=== PATIENT | female | born 1940 | race Caucasian/White ===

== ENCOUNTER 2017-06-15 15:59 | Outpatient (CLI) | payer MEDICARE ==
--- NOTE | 2017-06-16 15:15 | Mammography Report ---
DIGITAL SCREENING MAMMOGRAM: 06/15/2017 CLINICAL INDICATION: A 76-year-old nulliparous patient for screening. COMPARISON: 04/2016, 04/2015, 04/2014, 03/2013, 02/2012, 01/2011, 12/2009 TECHNIQUE: Routine CC and MLO projections were obtained of the breasts. FINDINGS: Parenchymal tissue within the breasts is predominantly fatty replaced. There are no domina nt masses, suspicious microcalcifications, or secondary signs of malignancy. In comparison to the pre vious studies, there are no significant changes. IMPRESSION: NO MAMMOGRAPHIC EVIDENCE OF MALIGNANCY. NO SIGNIFICANT INTERVAL CHANGES. RECOMMENDATION: Screening mammography is recommended annually. BIRADS category 1 - negative. STANDARD QUALIFYING STATEMENTS 1. This examination was reviewed with the aid of Computed-Aided Detection (CAD). 2. A negative or benign imaging report should not delay biopsy if clinically suspicious findings are present. Consider surgical consultation if warranted. More than 5% of cancers are not identified by i maging. 3. Dense breasts may obscure an underlying neoplasm. JOB #: [id number] EXT JOB #:[id number]
== END 2017-06-15 16:00 | disposition home or self-care (01) ==
LOC: DI 15:59
PROVIDERS: ATTEND Internal Medicine
DX: Z12.31 Encounter for screening mammogram for malignant neoplasm of breast (principal)
CPT/HCPCS: 77067

== ENCOUNTER 2017-08-18 07:00 | Day surgery (SDC) | payer MEDICARE ==
[~2017-08-18 07:00] MED LIST: CYCLOPENTOLATE 1% OPHTH DROPS 2 ML ONE; KETOROLAC 0.45% OPHTH DROPS ONE; PHENYLEPHRINE 2.5% OPHTH 2 ML DROPS ONE; PROPARACAINE 0.5% OPHTH DROPS 15 ML ONE
[2017-08-18] MEDS ORDERED: PHENYLEPHRINE 2.5% OPHTH 2 ML DROPS LEFTEYE ONE (07:15)
[2017-08-18] MEDS ORDERED: PROPARACAINE 0.5% OPHTH DROPS 15 ML LEFTEYE ONE ×2 (07:15→08:30)
[2017-08-18] MEDS ORDERED: CYCLOPENTOLATE 1% OPHTH DROPS 2 ML LEFTEYE ONE (07:15)
[2017-08-18] MEDS ORDERED: KETOROLAC 0.45% OPHTH DROPS LEFTEYE ONE (07:15)
[2017-08-18] MEDS ORDERED: BRIMONIDINE 0.2% OPHTH DROPS 5 ML ONE (07:16)
[2017-08-18] MEDS ORDERED: TIMOLOL 0.5% OPHTH DROPS ONE (07:16)
[2017-08-18] MEDS ORDERED: LACTATED RINGERS 500 ML IV ONE (07:20)
[2017-08-18] MEDS ORDERED: EPINEPHrine 1 MG/ML VIAL ONE ×2 (07:21→07:31)
[2017-08-18] MEDS ORDERED: MIDAZOLAM 2 MG/2 ML VIAL IVP ONE (08:10)
[2017-08-18] MEDS ORDERED: CHONDR SULF/HYALURONATE SYRINGE IO ONE (08:30)
[2017-08-18] MEDS ORDERED: TIMOLOL 0.5% OPHTH DROPS OPTH ONE (08:30)
[2017-08-18] MEDS ORDERED: BSS/LIDOCAINE/EPINEPHRINE 1 ML SYRINGE IO ONE (08:30)
[2017-08-18] MEDS ORDERED: EPINEPHrine 1 MG/ML AMP IVP ONE (08:30)
[2017-08-18] MEDS ORDERED: TRIAMCIN/MOXIFLOX/VANCO 1 ML VIAL IO ONE (08:30)
[2017-08-18] MEDS ORDERED: BRIMONIDINE 0.2% OPHTH DROPS 5 ML OPTH ONE (08:30)
[2017-08-18 08:39] VITALS: BP 142/66
--- NOTE | 2017-08-18 11:03 | OPERATIVE REPORT ---
DATE OF SERVICE: 08/18/2017 Physician: Ayan Maldonado MD DATE OF SURGERY: 08/18/2017 PREOPERATIVE DIAGNOSIS: Visually significant cataract, left eye. This was her first cataract surgery. POSTOPERATIVE DIAGNOSIS: Visually significant cataract, left eye. This was her first cataract surgery. NAME OF PROCEDURE: Phacoemulsification with posterior chamber intraocular lens implant, left eye. SURGEON: Ayan Maldonado MD ANESTHESIA: Monitored anesthesia care. COMPLICATIONS: None. OPERATIVE INDICATIONS: This is a 76-year-old woman with progressive vision loss in the left eye due to 1+ nuclear sclerotic and 3+ cortical cataract. Best corrected visual acuity was 20/30 with glare to 20/50 in the left eye. Indications for surgery were overall decrease in vision and difficulty with glare to bright lights. She was consented at length concerning risks and benefits of cataract surgery, after which she expressed her desire to proceed with surgery. OPERATIVE PROCEDURE: The patient was taken into OR #3, and placed under monitored anesthesia care. A surgical time-out was conducted confirming correct patient, correct procedure, and correct surgical site. She was given topical anesthesia, and prepped and draped in the usual sterile fashion. The eye was entered at the 6 and 3 o'clock positions. Intracameral Shugarcaine was injected into the anterior chamber, followed by Viscoat. A continuous-tear curvilinear capsulorrhexis was performed. The nucleus was hydrodissected and phacoemulsified. Cortex was evacuated using automated infusion and aspiration (I&A). Provisc was injected in the capsular bag and a 21.0 diopter intraocular lens was inserted in the bag. Approximately 0.7 mL of a mixture of triamcinolone, moxifloxacin, vancomycin was injected subconjunctivally in the superior quadrant for infection and inflammation prophylaxis. I&A was used to evacuate the viscoelastic materials. The eye was inflated to physiologic pressure using a balanced salt solution and found to be watertight. The patient was taken from the operating room in good condition and given postoperative instructions. Dictating Provider: MD MICHELLE Smith/ TD: 08/18/2017 10:33 [facility]ENTERCollin
== END 2017-08-18 07:01 | disposition home or self-care (01) ==
LOC: SDS 07:00
PROVIDERS: ATTEND Ophthalmology
PROC: 08RK3JZ Replacement of Left Lens with Synthetic Substitute, Percutaneous Approach (ICD-10-PCS; principal; 2017-08-18 08:00)
DX: H25.812 Combined forms of age-related cataract, left eye (principal); I10 Essential (primary) hypertension; F32.9 Major depressive disorder, single episode, unspecified
CPT/HCPCS: 66984; A9270; J0171; J3490; V2632

== ENCOUNTER 2017-09-18 15:24 | Emergency (ER) | payer MEDICARE ==
[2017-09-18 15:51] VITALS: BP 152/100
--- NOTE | 2017-09-18 16:20 | ED Physician Documentation ---
PD HPI UPPER EXT INJURY - Stated complaint Stated Complaint: L WRIST INJ - Chief complaint Chief Complaint: Ext Problem - History obtained from History obtained from: Patient - History of Present Illness Location: Left, Wrist Type of injury: Fall (slipped walking dog and caught fall with left wrist, causing pain/injury to the wrist. Denies other injury.) Timing - onset: Today Timing - details: Abrupt onset, Still present Improved by: Rest Worsened by: Moving, Palpating Associated symptoms: Swelling (left wrist dorsally). No: Weakness, Numbness Contributing factors: No: Anticoagulated Similar symptoms before: Has not had sx before Recently seen: Not recently seen Review of Systems Cardiac: denies: Chest pain / pressure GI: denies: Abdominal Pain Skin: denies: Abrasion (s), Laceration (s) Neurologic: denies: Focal weakness, Numbness, Headache, Head injury PD PAST MEDICAL HISTORY - Past Medical History Past Medical History: No Cardiovascular: None, Hypertension Respiratory: None Endocrine/Autoimmune: None GI: None : Other HEENT: Chronic vision loss, Chronic hearing loss Psych: Depression, Anxiety Musculoskeletal: Osteoarthritis Derm: None - Past Surgical History Past Surgical History: Yes 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, Breast reduction HEENT: Cataracts, Tonsil/Adenoidectomy - Present Medications Home Medications: Ambulatory Orders Medication Instructions Recorded Confirmed Venlafaxine HCl [Effexor Xr] 150 mg PO DAILY 08/29/14 09/18/17 - Allergies Allergies/Adverse Reactions: Allergies Allergy/AdvReac Type Severity Reaction Status Date / Time Penicillins Allergy Unknown Verified 09/18/17 15:51 - Social History Does the pt smoke?: No Smoking Status: Never smoker Does the pt drink ETOH?: No Does the pt have substance abuse?: No - Immunizations Immunizations are current?: Yes - POLST Patient has POLST: No PD ED PE NORMAL - Vitals Vital signs reviewed: Yes - General General: Alert and oriented X 3, No acute distress, Well developed/nourished - HEENT HEENT: Atraumatic - Neck Neck: Supple, no meningeal sign, No bony TTP - Cardiac Cardiac: RRR, No murmur - Respiratory Respiratory: Clear bilaterally, Other (no chestwall tenderness) - Abdomen Abdomen: Soft, Non tender - Back Back: No spinal TTP - Derm Derm: Normal color, Warm and dry - Extremities Extremities: Other (left wrist with swelling dorsally and pain on slight ROM. Tender distal radius. No obvious angulation. ) - Neuro Neuro: Alert and oriented X 3, No motor deficit, No sensory deficit, Normal speech Results - Vitals Vitals: Oxygen O2 Source Room air - Rads (name of study) left wrist Radiology: Prelim report reviewed, EMP read contemporaneously (distal radius fracture without displacement nor angulation. comminuted with some articular involvement but articular surface appears in line. ) Procedures - Splint (location) left wrist Splint applied by: Tech Type of splint: Fiberglass, Sugar tong Other: Patient tolerated well, No complications, Neurovascular intact, Sling provided PD MEDICAL DECISION MAKING - ED course Complexity details: reviewed results, considered differential, d/w patient ( discussed fracture and need for follow up. She was told her BP was elevated and she says it is sometimes but does not take meds for it. ) Departure - Departure Disposition: 01 Home, Self Care Clinical Impression: Fall from slip, trip, or stumble Qualifiers: Encounter type: initial encounter Qualified Code(s): W01.0XXA - Fall on same level from slipping, tripping and stumbling without subsequent striking against object, initial encounter Wrist fracture Qualifiers: Encounter type: initial encounter Fracture type: closed Laterality: left Qualified Code(s): S62.102A - Fracture of unspecified carpal bone, left wrist, initial encounter for closed fracture Condition: Stable Record reviewed to determine appropriate education?: Yes Instructions: ED Fx Colles Wrist No Redu Requ, ED Splint Care Fiberglass Follow-Up: Maddie Fay MD [Primary Care Provider] - Carla Burroughs MD [Provider Admit Priv/Credential] - Comments: Keep the splint on and the wrist elevated. Ice periodically and elevated to reduce swelling. Call orthopedic office tomorrow for an appointment later in the week for change to a cast. Tylenol or ibuprofen if needed for pains. Discharge Date/Time: 09/18/17 17:05
--- NOTE | 2017-09-18 16:21 | XRAY Report ---
EXAM: LEFT WRIST RADIOGRAPHY EXAM DATE: 09/18/2017 04:09 PM. CLINICAL HISTORY: Fall. Left wrist injury. COMPARISON: Bilateral forearm radiographs 08/29/2014. TECHNIQUE: 4 views. FINDINGS: Bones: Comminuted, minimally impacted intra-articular distal radius fracture, superimposed on healed fracture deformity of the radial styloid. Joints: Normal alignment. Moderate joint space loss, subchondral degenerative changes, and osteophyto sis at the first CMC joint, mild joint space loss and osteophytosis at the first interphalangeal join t, and mild joint space loss and subchondral degenerative changes at the triscaphe joint, compatible with osteoarthritis. Soft Tissues: Swelling overlying the wrist. IMPRESSION: 1. Acute comminuted, minimally impacted intra-articular distal radius fracture. 2. Osteoarthritis at the first CMC, first IP, and triscaphe joints. [facility] Referring Provider Line: [phone] SITE ID: [id number]
--- NOTE | 2017-09-18 16:21 | XRAY Preliminary Report ---
Exam: XR WRIST 4 VIEW LT IMPRESSION: 1. Acute comminuted, minimally impacted intra-articular distal radius fracture. 2. Osteoarthritis at the first CMC, first IP, and triscaphe joints. [facility] SITE ID: [id number]
== END 2017-09-18 17:05 | disposition home or self-care (01) ==
LOC: ED 15:24
DX: S62.102A Fracture of unspecified carpal bone, left wrist, initial encounter for closed fracture (principal); W18.30XA Fall on same level, unspecified, initial encounter; Y93.K1 Activity, walking an animal; I10 Essential (primary) hypertension
CPT/HCPCS: 29125; 99283

== ENCOUNTER 2017-12-19 10:32 | Outpatient (CLI) | payer MEDICARE ==
--- NOTE | 2017-12-19 15:11 | DEXA Report ---
DEXA SCAN: 12/19/2017 CLINICAL INDICATION: Osteopenia. TECHNIQUE: Dual energy x-ray absorptiometry (DXA) was performed on a Simple Beat system. Regions measured are the AP spine, femoral neck, and, if needed, forearm. COMPARISON: None. In accordance with the International Society for Clinical Densitometry (ISCD) guidelines, data from previous exams may be reanalyzed using current recommendations and techniques. This is done to allow a more accurate basis for comparison with the current study. FINDINGS Data for the lumbar spine is as follows: REGION BMD (g/cm/cm) T-SCORE Z-SCORE L1 0.907 -1.9 -0.3 L2 1.165 -0.3 1.2 L3 1.227 0.2 1.8 L4 1.283 0.7 2.2 L1-L4 1.163 -0.1 1.4 NOTE: All evaluable vertebrae are used for classification. Data for the hip is as follows: REGION BMD (g/cm/cm) T-SCORE Z-SCORE Neck 0.712 -2.3 -0.6 TOTAL 0.783 -1.8 -0.2 NOTE: The femoral neck or total proximal femur, whichever is lowest, is used for classification. IMPRESSION WHO CLASSIFICATION BASED ON THE INTERNATIONAL REFERENCE STANDARD IS OSTEOPENIA. FRACTURE RISK IS INCREASED. RECOMMENDATION: Patients with diagnosis of osteoporosis or osteopenia should have regular bone mineral density assessment. For those eligible for Medicare, routine testing is allowed once every 2 years. Testing frequency can be increased for patients who have rapidly progressing disease or for those who are receiving medical therapy to restore bone mass. COMMENT World Health Organization (WHO) definitions for osteoporosis and osteopenia: NORMAL BMD: T-score at 1.0 or higher, fracture risk is low. OSTEOPENIA BMD: T-score between 1.0 and -2.5, fracture risk is increased. OSTEOPOROSIS BMD: T-score at 2.5 or lower, fracture risk high. National Osteoporosis Foundation recommends: 1. Obtain adequate dietary calcium (at least 1200 mg per day) and vitamin D (400 -800 international units per day). 2. Participate, as appropriate, in regular weightbearing and muscle- strengthening exercise. 3. Avoid tobacco use and reduce alcohol and caffeine intake. 4. For more detailed information see the website at www.NOF.org. TD: 12/19/2017 13:32 MTDD
== END 2017-12-19 10:33 | disposition home or self-care (01) ==
LOC: DI 10:32
PROVIDERS: ATTEND Internal Medicine
DX: M85.88 Other specified disorders of bone density and structure, other site (principal)
CPT/HCPCS: 77080

== ENCOUNTER 2018-04-03 07:48 | Day surgery (SDC) | payer MEDICARE ==
[2018-04-03] MEDS ORDERED: LACTATED RINGERS 1,000 ML IV ONE (07:56)
[2018-04-03] MEDS ORDERED: fentaNYL 250 MCG/5 ML VIAL IVP ONE (09:11)
[2018-04-03] MEDS ORDERED: MIDAZOLAM 2 MG/2 ML VIAL IVP ONE (09:11)
[2018-04-03 10:56] VITALS: BP 129/76
== END 2018-04-03 07:49 | disposition home or self-care (01) ==
LOC: SDS 07:48
PROVIDERS: ATTEND Surgery
PROC: 0DBP8ZZ Excision of Rectum, Via Natural or Artificial Opening Endoscopic (ICD-10-PCS; principal; 2018-04-03 09:00)
DX: Z12.11 Encounter for screening for malignant neoplasm of colon (principal); K62.1 Rectal polyp; K64.8 Other hemorrhoids; I10 Essential (primary) hypertension
CPT/HCPCS: 45380; J3010; J7120; 88305

== ENCOUNTER 2018-06-21 07:14 | Outpatient (CLI) | payer MEDICARE ==
[2018-06-21 11:16] LABS: BILIRUBIN,URINE NEGATIVE (NEGATIVE); GLUCOSE, URINE (UA) NEGATIVE (NEGATIVE); KETONES,URINE (UA) NEGATIVE (NEGATIVE); LEUKOCYTE ESTERASE, URINE NEGATIVE (NEGATIVE); NITRITE,URINE NEGATIVE (NEGATIVE); OCCULT BLOOD,URINE NEGATIVE (NEGATIVE); PH,URINE 6.5 PH (5.0-7.5); PROTEIN,URINE NEGATIVE (NEGATIVE); UROBILINOGEN,URINE 0.2 (NORMAL) E.U./dL (NORMAL)
[2018-06-21 11:17] LABS: CLARITY,URINE CLEAR (CLEAR)
[2018-06-21 11:41] LABS: ALBUMIN 4.1 g/dL (3.2-5.5); ALBUMIN/GLOBULIN RATIO 1.4 (1.0-2.2); ALKALINE PHOSPHATASE 144 IU/L (42-121); ALT ALANINE AMINOTRANSFERASE 15 IU/L (10-60); AST ASPARTATE AMINOTRANSFERASE 20 IU/L (10-42); BILIRUBIN,TOTAL 0.8 mg/dL (0.2-1.0); BUN - BLOOD UREA NITROGEN 13 mg/dL (6-20); CALCIUM 9.1 mg/dL (8.5-10.3); CARBON DIOXIDE - CO2 28 mmol/L (21-32); CHLORIDE 107 mmol/L (101-111); CHOL/HDL RATIO 2.9 (<4.4); CHOLESTEROL 167 mg/dL; CREATININE 0.8 mg/dL (0.4-1.0); GFR - MDRD 70 (>89); GLUCOSE 88 mg/dL (70-100); HDL CHOLESTEROL 58 mg/dL; LDL CHOLESTEROL,CALCULATED 90 mg/dL; LDL/HDL RATIO 1.6 (<4.4); SODIUM 141 mmol/L (135-145); TOTAL PROTEIN 7.1 g/dL (6.7-8.2); VLDL CHOLESTEROL 19 mg/dL
[2018-06-22 13:01] LABS: HEPATITIS C ANTIBODY NON-REACTIVE (NON-REACTIVE)
[2018-06-22 13:31] LABS: HEPATITIS B SURFACE ANTIGEN NON-REACTIVE (NON-REACTIVE)
== END 2018-06-21 07:15 | disposition home or self-care (01) ==
LOC: LAB.F 07:14
PROVIDERS: ATTEND Internal Medicine
DX: I10 Essential (primary) hypertension (principal); Z79.899 Other long term (current) drug therapy; H26.9 Unspecified cataract; M85.80 Other specified disorders of bone density and structure, unspecified site; D56.9 Thalassemia, unspecified; L71.9 Rosacea, unspecified; Z86.19 Personal history of other infectious and parasitic diseases; Z13.6 Encounter for screening for cardiovascular disorders
CPT/HCPCS: 36415; 80053; 80061; 81001; 81003; 83721; 84443; 86317; 86704; 86803; 87086; 87340

== ENCOUNTER 2018-06-23 11:02 | Outpatient (CLI) | payer MEDICARE ==
[2018-06-23 18:21] LABS: BASOPHILS % (AUTO) 0.7 %; EOSINOPHILS # (AUTO) 0.1 10^3/uL (0.0-0.7); EOSINOPHILS % (AUTO) 1.1 %; HGB - HEMOGLOBIN 12.6 g/dL (12.0-16.0); LYMPHOCYTES # (AUTO) 1.7 10^3/uL (1.5-3.5); LYMPHOCYTES % (AUTO) 25.4 %; MEAN CORPUSCULAR HEMOGLOBIN 19.8 pg (27.0-31.0); MEAN CORPUSCULAR HGB CONC 31.2 g/dL (32.0-36.0); MEAN CORPUSCULAR VOLUME 63.5 fL (81.0-99.0); MEAN PLATELET VOLUME 8.9 fL (7.9-10.8); MONOCYTES # (AUTO) 0.6 10^3/uL (0.0-1.0); MONOCYTES % (AUTO) 9.7 %; NEUTROPHILS # (AUTO) 4.2 10^3/uL (1.5-6.6); NEUTROPHILS % (AUTO) 63.1 %; PLT - PLATELET COUNT 261 10^3/uL (130-450); RED BLOOD COUNT 6.33 10^6/uL (4.20-5.40); RED CELL DISTRIBUTION WIDTH 17.1 % (12.0-15.0); WHITE BLOOD COUNT 6.6 x10^3/uL (4.8-10.8)
[2018-06-23 19:19] LABS: PLATELET ESTIMATE, MANUAL NORMAL (130-450,000) (NORMAL); PLATELET MORPHOLOGY NORMAL APPEARANCE (NORMAL)
== END 2018-06-23 11:03 | disposition home or self-care (01) ==
LOC: LAB.F 11:02
PROVIDERS: ATTEND Internal Medicine
DX: I10 Essential (primary) hypertension (principal); Z79.899 Other long term (current) drug therapy; H26.9 Unspecified cataract; M85.80 Other specified disorders of bone density and structure, unspecified site; D56.9 Thalassemia, unspecified; L71.9 Rosacea, unspecified; Z13.6 Encounter for screening for cardiovascular disorders
CPT/HCPCS: 36415; 85025

== ENCOUNTER 2018-07-31 15:01 | Outpatient (CLI) | payer MEDICARE ==
--- NOTE | 2018-08-01 08:46 | Mammography Report ---
Reason: SCREENING MAMMO Procedure Date: 07/31/2018 Accession Number: [id number] / [id number] Procedure: JEN - Screening Mammo w/Aniceto CPT Code: FULL RESULT: EXAM: Screening Mammo w/Aniceto DATE: 07/31/2018 3:26 PM CLINICAL HISTORY: Screening encounter. History of nulliparity and early menses. Surgical history of breast reduction. Family history of breast cancer in an aunt at the age of 60 and multiple cousins at the age of 45 and 77. TECHNIQUE: Bilateral CC and MLO views were obtained. COMPARISON: 06/15/2017 through 05/27/2014. FINDINGS: The breasts demonstrate diffuse fatty replacement bilaterally. Coarse typically benign right breast calcifications are identified. No suspicious masses, clustered microcalcifications, or regions of architectural distortion are identified. IMPRESSION: Benign findings RECOMMENDATION: Routine annual screening unless otherwise clinically indicated. BIRADS CATEGORY 2: Benign findings STANDARD QUALIFYING STATEMENTS: 1. This examination was not reviewed with the aid of Computer-Aided Detection (CAD). 2. A negative or benign imaging report should not preclude biopsy if clinically suspicious findings are present. 3. Dense breasts may obscure an underlying neoplasm. 4. This examination was reviewed with the aid of 3D breast imaging (tomosynthesis).
== END 2018-07-31 15:02 | disposition home or self-care (01) ==
LOC: DI 15:01
PROVIDERS: ATTEND Internal Medicine
DX: Z12.31 Encounter for screening mammogram for malignant neoplasm of breast (principal); Z80.3 Family history of malignant neoplasm of breast
CPT/HCPCS: 77063; 77067

== ENCOUNTER 2018-09-20 11:25 | Outpatient (CLI) | payer MEDICARE ==
--- NOTE | 2018-09-20 14:04 | XRAY Report ---
Reason: BONY PROTRUSION R UPPER SHOUDLER Procedure Date: 09/20/2018 Accession Number: [id number] / [id number] Procedure: XR - Shoulder 3 View RT CPT Code: FULL RESULT: EXAM: RIGHT SHOULDER RADIOGRAPHY EXAM DATE: 09/20/2018 12:12 PM. CLINICAL HISTORY: Bony protrusion right upper shoulder. COMPARISON: None. TECHNIQUE: 3 views. FINDINGS: Bones: Normal. No fracture or bone lesion. Joints: The glenohumeral and acromioclavicular joints are normal with the exception of degenerative changes at the AC joint, mild. Soft tissues: The visualized hemithorax is unremarkable. No soft tissue swelling. IMPRESSION: No fracture or dislocation. Mild degenerative changes of the acromioclavicular joint are likely the etiology of a bony palpable abnormality on top of the shoulder, correlate to physical exam. [facility]
== END 2018-09-20 11:26 | disposition home or self-care (01) ==
LOC: LAB 11:25 → DI 11:26
PROVIDERS: ATTEND Internal Medicine
DX: M19.011 Primary osteoarthritis, right shoulder (principal); M89.311 Hypertrophy of bone, right shoulder; M25.519 Pain in unspecified shoulder
CPT/HCPCS: 36415; 85651; 86140

== ENCOUNTER 2019-04-05 05:48 | Day surgery (SDC) | payer MEDICARE ==
[2019-04-05] MEDS ORDERED: CYCLOPENTOLATE 1% OPHTH DROPS 2 ML ONE (06:27)
[2019-04-05] MEDS ORDERED: PHENYLEPHRINE 2.5% OPHTH 2 ML DROPS ONE ×2 (06:27→06:28)
[2019-04-05] MEDS ORDERED: KETOROLAC 0.45% OPHTH DROPS ONE (06:27)
[2019-04-05] MEDS ORDERED: PROPARACAINE 0.5% OPHTH DROPS 15 ML ONE ×2 (06:28→06:29)
[2019-04-05] MEDS ORDERED: PHENYLEPHRINE 2.5% OPHTH 2 ML DROPS RIGHTEYE ONE (06:35)
[2019-04-05] MEDS ORDERED: KETOROLAC 0.45% OPHTH DROPS RIGHTEYE ONE (06:35)
[2019-04-05] MEDS ORDERED: CYCLOPENTOLATE 1% OPHTH DROPS 2 ML RIGHTEYE ONE (06:35)
[2019-04-05] MEDS ORDERED: PROPARACAINE 0.5% OPHTH DROPS 15 ML RIGHTEYE ONE ×2 (06:35→07:36)
[2019-04-05] MEDS ORDERED: LACTATED RINGERS 1,000 ML IV ONE (06:39)
--- NOTE | 2019-04-05 07:10 | ANESTHESIA ---
Pre-Anesthesia VS, & Labs - Diagnosis right eye senile combined cataract - Procedure right eye cataract extraction with probable intraocular lens implant Vital Signs: Temp Pulse Resp BP Pulse Ox 36.4 C L 85 18 154/75 H 96 04/05/19 06:29 04/05/19 06:29 04/05/19 06:29 04/05/19 06:29 04/05/19 06:29 Height 5 ft Weight (kg) 69.1 kg Body Mass Index 30.0 - NPO >8 hours - Is Patient ?: No Home Medications and Allergies Home Medications: Ambulatory Orders Aspirin 325 mg PO DAILY PRN 04/04/19 L.acid/L.casei/B.bif/B.ben/Fos [Probiotic Blend Capsule] 1 DAILY 04/05/19 Venlafaxine HCl [Effexor Xr] 150 mg PO DAILY 08/29/14 Amlodipine Besylate 10 mg PO DAILY 04/03/18 Aspirin 325 mg PO DAILY PRN 04/04/19 L.acid/L.casei/B.bif/B.ben/Fos [Probiotic Blend Capsule] 1 DAILY 04/05/19 Allergies/Adverse Reactions: Allergies Allergy/AdvReac Type Severity Reaction Status Date / Time Sulfa (Sulfonamide Allergy Severe Unknown Verified 04/04/19 13:38 Antibiotics) Penicillins Allergy Unknown Verified 04/04/19 13:38 Anes History & Medical History - Medical History Cardiovascular: reports: Hypertension Pulmonary: reports: None Gastrointestinal: reports: None Urinary: reports: None Neuro: reports: None Musculoskeletal: reports: Osteoarthritis Endocrine/Autoimmune: reports: None Blood Disorders: reports: None Skin: reports: None Smoking Status: Never smoker Psychosocial: reports: Depression - Surgical History General: Colonoscopy Eyes Ears Nose Throat (EENT): Cataracts, Tonsil/Adenoidectomy Urologic: Bladder surgery Gynecologic: Hysterectomy, Breast reduction Exam General: Alert, Oriented x3, Cooperative, No acute distress Dental: WNL Mouth Openin Fingerbreadth Neck Mobility: Normal Mallampati classification: II Thyromental Distance: 4-6 cm Mental/Cognitive Status: Alert/Oriented X3, Normal for patient Plan Anesthesia Type: MAC Consent for Procedure(s) Verified and Reviewed: Yes Code Status: Attempt Resuscitation ASA classification: 2-Mild systemic disease Is this case an emergency?: No
[2019-04-05] MEDS ORDERED: TRIAMCIN/MOXIFLOX OPHTHALMIC 0.6 ML VIAL IO ONE ×2 (07:16→07:37)
[2019-04-05] MEDS ORDERED: EPINEPHrine 1 MG/ML AMP ONE (07:16)
[2019-04-05] MEDS ORDERED: BRIMONIDINE 0.2% OPHTH DROPS 5 ML ONE (07:16)
[2019-04-05] MEDS ORDERED: TIMOLOL 0.5% OPHTH DROPS ONE (07:16)
[2019-04-05] MEDS ORDERED: VANCOMYCIN OPHTHALMI 8MG/0.8ML 8 MG/0.8 ML SYRINGE IO ONE ×2 (07:17→07:37)
[2019-04-05] MEDS ORDERED: BSS/LIDOCAINE/EPINEPHRINE 1 ML SYRINGE ONE (07:17)
[2019-04-05] MEDS ORDERED: MIDAZOLAM 2 MG/2 ML VIAL IVP ONE (07:30)
[2019-04-05] MEDS ORDERED: BRIMONIDINE 0.2% OPHTH DROPS 5 ML OPTH ONE (07:35)
[2019-04-05] MEDS ORDERED: TIMOLOL 0.5% OPHTH DROPS OPTH ONE (07:36)
[2019-04-05] MEDS ORDERED: EPINEPHrine 1 MG/ML AMP IVP ONE (07:36)
[2019-04-05] MEDS ORDERED: BSS/LIDOCAINE/EPINEPHRINE 1 ML SYRINGE IO ONE (07:36)
[2019-04-05] MEDS ORDERED: CHONDR SULF/HYALURONATE SYRINGE IO ONE (07:36)
[2019-04-05 07:57] VITALS: BP 138/68
--- NOTE | 2019-04-05 08:23 | OPERATIVE REPORT ---
DATE OF SERVICE: 04/05/2019 Physician: Ayan Maldonado MD PREOPERATIVE DIAGNOSIS: Visually significant cataract, right eye. Cataract surgery was performed on the left eye on 08/18/2017. POSTOPERATIVE DIAGNOSIS: Visually significant cataract, right eye. Cataract surgery was performed o n the left eye on 08/18/2017. PROCEDURE: Phacoemulsification with posterior chamber intraocular lens implant, right eye. SURGEON: Ayan Maldonado MD ANESTHESIA: Monitored anesthesia care. COMPLICATIONS: None. OPERATIVE INDICATIONS: This is a 78-year-old woman with progressive vision loss in the right eye due to 2+ nuclear sclerotic and 2-3+ cortical cataract. Best corrected visual acuity was 20/40, with gl are to 20/60 in the right eye. Indications for surgery were overall decrease in vision and difficult y seeing words, closed caption or game scores on TV. She was consented at length concerning risks an d benefits of cataract surgery, after which she expressed a desire to proceed with surgery. OPERATIVE PROCEDURE: Patient was taken into OR #3 and placed under monitored anesthesia care. A venessa gical timeout was conducted confirming correct patient, correct procedure, and correct surgical site. She was given topical anesthesia, and prepped and draped in the usual sterile fashion. The eye was entered at the 12 and 9 o'clock positions. Intracameral Shugarcaine was injected into the anterior chamber, followed by Viscoat. A continuous-tear curvilinear capsulorrhexis was performed. The nucle us was hydrodissected and phacoemulsified. Cortex was evacuated using automated infusion and aspirat ion. Provisc was injected in the capsular bag, and a 22.0 diopter intraocular lens was inserted in t he bag. Approximately 0.8 mL of a mixture of triamcinolone, moxifloxacin and vancomycin was injected subconjunctivally in the superior quadrant for infection and inflammation prophylaxis. I and A was used to evacuate the viscoelastic materials. The eye was inflated to physiologic pressure using a ba lanced salt solution and found to be watertight. Patient was taken from the operating room in good c ondition and given postoperative instructions. TD: 04/05/2019 07:57
== END 2019-04-05 05:49 | disposition home or self-care (01) ==
LOC: SDS 05:48
PROVIDERS: ATTEND Ophthalmology
PROC: 08RJ3JZ Replacement of Right Lens with Synthetic Substitute, Percutaneous Approach (ICD-10-PCS; principal; 2019-04-05 07:30)
DX: H25.811 Combined forms of age-related cataract, right eye (principal); I10 Essential (primary) hypertension
CPT/HCPCS: 66984; A9270; J3490; J7120; V2632

== ENCOUNTER 2019-06-01 07:33 | Outpatient (CLI) | payer MEDICARE ==
[2019-06-01 07:54] LABS: BASOPHILS # (AUTO) 0.1 10^3/uL (0.0-0.1); BASOPHILS % (AUTO) 0.9 %; EOSINOPHILS # (AUTO) 0.2 10^3/uL (0.0-0.7); HGB - HEMOGLOBIN 10.6 g/dL (12.0-16.0); LYMPHOCYTES # (AUTO) 1.4 10^3/uL (1.5-3.5); LYMPHOCYTES % (AUTO) 23.3 %; MEAN CORPUSCULAR HEMOGLOBIN 18.2 pg (27.0-31.0); MEAN CORPUSCULAR VOLUME 62.5 fL (81.0-99.0); MONOCYTES # (AUTO) 0.6 10^3/uL (0.0-1.0); MONOCYTES % (AUTO) 10.2 %; NEUTROPHILS # (AUTO) 3.6 10^3/uL (1.5-6.6); NEUTROPHILS % (AUTO) 61.3 %; PLT - PLATELET COUNT 295 10^3/uL (130-450); RED BLOOD COUNT 5.84 10^6/uL (4.20-5.40); RED CELL DISTRIBUTION WIDTH 21.2 % (12.0-15.0); WHITE BLOOD COUNT 5.8 x10^3/uL (4.8-10.8)
[2019-06-01 08:12] LABS: ALBUMIN 3.9 g/dL (3.2-5.5); ALBUMIN/GLOBULIN RATIO 1.3 (1.0-2.2); ALKALINE PHOSPHATASE 146 IU/L (42-121); ALT ALANINE AMINOTRANSFERASE 15 IU/L (10-60); AST ASPARTATE AMINOTRANSFERASE 24 IU/L (10-42); BILIRUBIN,TOTAL 0.8 mg/dL (0.2-1.0); BUN - BLOOD UREA NITROGEN 9 mg/dL (6-20); CALCIUM 9.1 mg/dL (8.5-10.3); CARBON DIOXIDE - CO2 28 mmol/L (21-32); CHLORIDE 109 mmol/L (101-111); CHOL/HDL RATIO 2.7 (<4.4); CHOLESTEROL 170 mg/dL; CREATININE 0.8 mg/dL (0.4-1.0); GFR - MDRD 70 (>89); GLUCOSE 105 mg/dL (70-100); HDL CHOLESTEROL 62 mg/dL; LDL CHOLESTEROL,CALCULATED 98 mg/dL; LDL/HDL RATIO 1.6 (<4.4); SODIUM 144 mmol/L (135-145); TOTAL PROTEIN 6.8 g/dL (6.7-8.2); VLDL CHOLESTEROL 10 mg/dL
[2019-06-01 08:26] LABS: PLATELET ESTIMATE, MANUAL NORMAL (130-450,000) (NORMAL); PLATELET MORPHOLOGY NORMAL APPEARANCE (NORMAL)
[2019-06-01 08:38] LABS: HB2 TOTAL 11.4 g/dL; HEMOGLOBIN A1C 0.44 g/dL; HEMOGLOBIN A1C % 5.7 % (4.6-6.2)
== END 2019-06-01 07:34 | disposition home or self-care (01) ==
LOC: LAB 07:33
PROVIDERS: ATTEND Registered Nurse
DX: I10 Essential (primary) hypertension (principal); Z13.220 Encounter for screening for lipoid disorders; Z13.1 Encounter for screening for diabetes mellitus
CPT/HCPCS: 36415; 80053; 80061; 83036; 83721; 84443; 85025

== ENCOUNTER 2019-06-01 07:44 | Outpatient (CLI) | payer MEDICARE ==
--- NOTE | 2019-06-01 15:28 | Mammography Report ---
Reason: SCREENING MAMMO Procedure Date: 06/01/2019 Accession Number: [id number] / [id number] Procedure: JEN - Screening Mammo w/Aniceto CPT Code: FULL RESULT: EXAM: Screening Mammo w/Aniceto DATE: 06/01/2019 8:12 AM CLINICAL HISTORY: Screening TECHNIQUE: (B) - Bilateral CC and MLO views were obtained. COMPARISON: 07/31/2018, 06/15/2017, 05/25/2016 PARENCHYMAL PATTERN: (A) - The breasts demonstrate scattered fibroglandular densities bilaterally. FINDINGS: There are no suspicious masses, calcifications, or areas of distortion. IMPRESSION: Negative examination. BI-RADS category 1. RECOMMENDATION: (ANNUAL) - Recommend routine annual screening mammography. BI-RADS CATEGORY: (2) - Benign Findings. STANDARD QUALIFYING STATEMENTS: 1. This examination was not reviewed with the aid of Computer-Aided Detection (CAD). 2. A negative or benign imaging report should not preclude biopsy if clinically suspicious findings are present. 3. Dense breasts may obscure an underlying neoplasm. 4. This examination was reviewed with the aid of 3D breast imaging (tomosynthesis).
== END 2019-06-01 07:45 | disposition home or self-care (01) ==
LOC: DI 07:44
DX: Z12.31 Encounter for screening mammogram for malignant neoplasm of breast (principal)
CPT/HCPCS: 77063; 77067

== ENCOUNTER 2020-05-14 07:46 | Outpatient (CLI) | payer OTHER ==
[2020-05-14 08:09] LABS: BASOPHILS # (AUTO) 0.1 10^3/uL (0.0-0.1); BASOPHILS % (AUTO) 0.7 %; EOSINOPHILS # (AUTO) 0.2 10^3/uL (0.0-0.7); EOSINOPHILS % (AUTO) 2.5 %; HGB - HEMOGLOBIN 12.6 g/dL (12.0-16.0); LYMPHOCYTES # (AUTO) 1.6 10^3/uL (1.5-3.5); MEAN CORPUSCULAR HEMOGLOBIN 20.6 pg (27.0-31.0); MEAN CORPUSCULAR HGB CONC 30.4 g/dL (32.0-36.0); MEAN CORPUSCULAR VOLUME 67.9 fL (81.0-99.0); MEAN PLATELET VOLUME 10.7 fL (7.9-10.8); MONOCYTES # (AUTO) 0.7 10^3/uL (0.0-1.0); MONOCYTES % (AUTO) 9.2 %; NEUTROPHILS % (AUTO) 66.3 %; PLT - PLATELET COUNT 269 10^3/uL (130-450); RED BLOOD COUNT 6.11 10^6/uL (4.20-5.40); RED CELL DISTRIBUTION WIDTH 18.6 % (12.0-15.0); WHITE BLOOD COUNT 7.5 x10^3/uL (4.8-10.8)
[2020-05-14 08:24] LABS: ALBUMIN 4.2 g/dL (3.2-5.5); ALBUMIN/GLOBULIN RATIO 1.4 (1.0-2.2); ALKALINE PHOSPHATASE 129 IU/L (42-121); ALT ALANINE AMINOTRANSFERASE 18 IU/L (10-60); AST ASPARTATE AMINOTRANSFERASE 24 IU/L (10-42); BILIRUBIN,TOTAL 0.8 mg/dL (0.2-1.0); BUN - BLOOD UREA NITROGEN 14 mg/dL (6-20); CALCIUM 9.3 mg/dL (8.5-10.3); CARBON DIOXIDE - CO2 29 mmol/L (21-32); CHLORIDE 104 mmol/L (101-111); CHOL/HDL RATIO 3.2 (<4.4); CHOLESTEROL 177 mg/dL; CREATININE 0.9 mg/dL (0.4-1.0); GLUCOSE 122 mg/dL (70-100); HDL CHOLESTEROL 56 mg/dL; LDL CHOLESTEROL,CALCULATED 101 mg/dL; LDL/HDL RATIO 1.8 (<4.4); SODIUM 141 mmol/L (135-145); TOTAL PROTEIN 7.1 g/dL (6.7-8.2); VLDL CHOLESTEROL 20 mg/dL
[2020-05-14 08:32] LABS: PLATELET ESTIMATE, MANUAL NORMAL (130-450,000) (NORMAL); PLATELET MORPHOLOGY NORMAL APPEARANCE (NORMAL)
== END 2020-05-14 07:47 | disposition home or self-care (01) ==
LOC: LAB 07:46
PROVIDERS: ATTEND Registered Nurse
DX: I10 Essential (primary) hypertension (principal); K21.9 Gastro-esophageal reflux disease without esophagitis; F32.9 Major depressive disorder, single episode, unspecified
CPT/HCPCS: 36415; 80053; 80061; 83721; 84443; 85025

== ENCOUNTER 2020-05-22 13:12 | Outpatient (CLI) | payer OTHER ==
[2020-05-22 13:41] LABS: % IRON SATURATION 24 % (20-50); IRON 97 ug/dL (28-170); TOTAL IRON BINDING CAPACITY 409 ug/dL (250-450); TRANSFERRIN 292 mg/dL (192-382)
[2020-05-22 13:58] LABS: FERRITIN 19.5 ng/mL (11.0-306.8)
== END 2020-05-22 13:13 | disposition home or self-care (01) ==
LOC: LAB 13:12
PROVIDERS: ATTEND Registered Nurse
DX: R79.9 Abnormal finding of blood chemistry, unspecified (principal)
CPT/HCPCS: 36415; 82607; 82728; 83540; 84466

== ENCOUNTER 2020-07-01 15:10 | Outpatient (CLI) | payer OTHER ==
--- NOTE | 2020-07-02 16:31 | Mammography Report ---
BILATERAL DIGITAL SCREENING MAMMOGRAM 3D/2D: 07/01/2020 CLINICAL: Routine screening. Comparison is made to exams dated: 06/01/2019 mammogram, 07/31/2018 mammogram, and 06/15/2017 mammogra m - [facility]. The tissue of both breasts is predominantly fatty. No significant masses, calcifications, or other findings are seen in either breast. There has been no significant interval change. IMPRESSION: NEGATIVE There is no mammographic evidence of malignancy. A 1 year screening mammogram is recommended. This exam was interpreted at Station ID: [id number]. NOTE: For mammograms, a report in lay terms will be sent to the patient. Approximately 15% of breast malignancies will not be visualized mammographically. In the management of a palpable breast mass, a negative mammogram must not discourage biopsy of a clinically suspicious lesion. Electronically Signed By: Mirella white/naterad:07/01/2020 16:59:31 ACR BI-RADS Category 1: Negative 3341F PARENCHYMAL PATTERN: (F) - The breast(s) demonstrate(s) diffuse fatty replacement. BI-RADS CATEGORY: (1) - 1 RECOMMENDATION: (ANNUAL) - Recommend routine annual screening mammography. [id number] 1 year screening LATERALITY: (B)
== END 2020-07-01 15:11 | disposition home or self-care (01) ==
LOC: DI 15:10
PROVIDERS: ATTEND Registered Nurse
DX: Z12.31 Encounter for screening mammogram for malignant neoplasm of breast (principal)
CPT/HCPCS: 77063; 77067

== ENCOUNTER 2021-08-12 09:42 | Outpatient (CLI) | payer OTHER ==
[2021-08-12 10:02] LABS: BASOPHILS % (AUTO) 0.6 %; EOSINOPHILS # (AUTO) 0.2 10^3/uL (0.0-0.7); EOSINOPHILS % (AUTO) 3.1 %; HCT - HEMATOCRIT 44.6 % (37.0-47.0); HGB - HEMOGLOBIN 13.4 g/dL (12.0-16.0); LYMPHOCYTES # (AUTO) 1.5 10^3/uL (1.5-3.5); LYMPHOCYTES % (AUTO) 21.2 %; MEAN CORPUSCULAR HEMOGLOBIN 20.2 pg (27.0-31.0); MEAN CORPUSCULAR VOLUME 67.2 fL (81.0-99.0); MONOCYTES # (AUTO) 0.6 10^3/uL (0.0-1.0); MONOCYTES % (AUTO) 8.7 %; NEUTROPHILS # (AUTO) 4.6 10^3/uL (1.5-6.6); NEUTROPHILS % (AUTO) 66.3 %; PLT - PLATELET COUNT 264 10^3/uL (130-450); RED BLOOD COUNT 6.64 10^6/uL (4.20-5.40); RED CELL DISTRIBUTION WIDTH 18.6 % (12.0-15.0); WHITE BLOOD COUNT 6.9 x10^3/uL (4.8-10.8)
[2021-08-12 10:05] LABS: SLIDE REVIEW? Indicated
[2021-08-12 10:18] LABS: ALBUMIN 4.4 g/dL (3.2-5.5); ALBUMIN/GLOBULIN RATIO 1.5 (1.0-2.2); ALKALINE PHOSPHATASE 164 IU/L (42-121); ALT ALANINE AMINOTRANSFERASE 20 IU/L (10-60); AST ASPARTATE AMINOTRANSFERASE 28 IU/L (10-42); BILIRUBIN,TOTAL 0.7 mg/dL (0.2-1.0); BUN - BLOOD UREA NITROGEN 15 mg/dL (6-20); CALCIUM 9.8 mg/dL (8.5-10.3); CARBON DIOXIDE - CO2 30 mmol/L (21-32); CHLORIDE 102 mmol/L (101-111); CHOL/HDL RATIO 3.2 (<4.4); CHOLESTEROL 191 mg/dL; CREATININE 0.8 mg/dL (0.4-1.0); GFR - MDRD 69 (>89); GLUCOSE 112 mg/dL (70-100); HDL CHOLESTEROL 59 mg/dL; LDL CHOLESTEROL,CALCULATED 114 mg/dL; LDL/HDL RATIO 1.9 (<4.4); SODIUM 141 mmol/L (135-145); TOTAL PROTEIN 7.4 g/dL (6.7-8.2); TRIGLYCERIDES 88 mg/dL; VLDL CHOLESTEROL 18 mg/dL
[2021-08-12 10:29] LABS: THYROID STIMULATING HORMONE 1.73 uIU/mL (0.34-5.60)
[2021-08-12 11:01] LABS: PLATELET ESTIMATE, MANUAL NORMAL (130-450,000) (NORMAL); PLATELET MORPHOLOGY NORMAL APPEARANCE (NORMAL)
[2021-08-12 11:02] LABS: RBC MORPHOLOGY (MULTIPLE) 1+ MICROCYTOSIS (NORMAL); WBC MORPHOLOGY (MULTIPLE) NORMAL APPEARANCE (NORMAL)
--- NOTE | 2021-08-13 13:37 | Mammography Report ---
BILATERAL DIGITAL SCREENING MAMMOGRAM 3D/2D: 08/12/2021 CLINICAL: Routine screening. Comparison is made to exams dated: 07/01/2020 mammogram, 06/01/2019 mammogram, 07/31/2018 mammogram, mammogram, 05/25/2016 mammogram, and 05/20/2015 mammogram - [facility]. The tissue of both breasts is predominantly fatty. No significant masses, calcifications, or other findings are seen in either breast. There has been no significant interval change. IMPRESSION: NEGATIVE There is no mammographic evidence of malignancy. A 1 year screening mammogram is recommended. This exam was interpreted at Station ID: [id number]. NOTE: For mammograms, a report in lay terms will be sent to the patient. Approximately 15% of breast malignancies will not be visualized mammographically. In the management of a palpable breast mass, a negative mammogram must not discourage biopsy of a clinically suspicious lesion. Electronically Signed By: Nato Kirby M.D., jr/samara:08/12/2021 15:24:56 ACR BI-RADS Category 1: Negative 3341F PARENCHYMAL PATTERN: (F) - The breast(s) demonstrate(s) diffuse fatty replacement. BI-RADS CATEGORY: (1) - 1 RECOMMENDATION: (ANNUAL) - Recommend routine annual screening mammography. [id number] 1 year screening LATERALITY: (B)
== END 2021-08-12 09:43 | disposition home or self-care (01) ==
LOC: DI 09:42
PROVIDERS: ATTEND Registered Nurse
DX: Z12.31 Encounter for screening mammogram for malignant neoplasm of breast (principal); I10 Essential (primary) hypertension; F32.A Depression, unspecified; Z79.899 Other long term (current) drug therapy
CPT/HCPCS: 36415; 80053; 80061; 83721; 84443; 85025

== ENCOUNTER 2022-01-16 15:11 | Emergency (ER) | payer OTHER, MEDICARE ==
[2022-01-16] MEDS ORDERED: KETOROLAC 15 MG/ML VIAL IVP STA (15:18)
--- NOTE | 2022-01-16 15:19 | ED Physician Documentation ---
PD HPI LOWER EXT INJURY - Stated complaint Stated Complaint: FALL/R ANKLE PAIN - History obtained from History obtained from: Patient, Family - Additional information Additional information: 81-year-old woman with history of hypertension, otherwise very healthy. She was hiking at [employer] and slipped in the mud and injured her right ankle. No other injuries. This happened today. Pain is severe but does not want anything narcotic at least on initial evaluation for pain. 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, Breast reduction Cardiovascular: CABG Neuro: Craniotomy HEENT: Cataracts, Tonsil/Adenoidectomy Derm: Skin grafts - Present Medications Home Medications: Ambulatory Orders Medication Instructions Recorded Confirmed Venlafaxine HCl [Effexor Xr] 150 mg PO DAILY 08/29/14 04/03/18 Amlodipine Besylate 10 mg PO DAILY 04/03/18 04/03/18 Aspirin 325 mg PO DAILY PRN 04/04/19 04/04/19 L.acid/L.casei/B.bif/B.ben/Fos 1 DAILY 04/05/19 [Probiotic Blend Capsule] HYDROcod/ACETAM 5/325 [[place] 5/325] 1 - 2 tab PO Q6H PRN #15 tablet 01/16/22 - Allergies Allergies/Adverse Reactions: Allergies Allergy/AdvReac Type Severity Reaction Status Date / Time Sulfa (Sulfonamide Allergy Severe Unknown Verified 01/16/22 15:20 Antibiotics) Penicillins Allergy Unknown Verified 01/16/22 15:20 - Social History Does the pt smoke?: No Smoking Status: Never smoker Does the pt drink ETOH?: No Does the pt have substance abuse?: No - Immunizations Immunizations are current?: Yes - POLST Patient has POLST: No PD ED PE NORMAL - Vitals Vital signs reviewed: Yes - General General: Alert and oriented X 3, No acute distress - HEENT HEENT: PERRL, EOMI - Neck Neck: Supple, no meningeal sign, No bony TTP - Cardiac Cardiac: RRR, No murmur - Respiratory Respiratory: No respiratory distress, Clear bilaterally - Abdomen Abdomen: Normal bowel sounds, Soft, Non tender - Derm Derm: Normal color, Warm and dry - Extremities Extremities: Other (Deformity medially of the right ankle consistent with at least probably a bimalleolar fracture. No proximal fibular tenderness. Good pedal pulses and sensation.) - Neuro Neuro: Alert and oriented X 3, Normal speech Results - Vitals Vitals: Vital Signs - 24 hr 01/16/22 01/16/22 01/16/22 15:20 16:56 17:44 Temperature 37.2 C 36.9 C Heart Rate 80 80 78 Respiratory 19 18 18 Rate Blood Pressure 182/80 H 160/84 H O2 Saturation 97 99 Oxygen O2 Source Room air - Rads (name of study) R ankle XR Radiology: EMP read contemporaneously (Trimalleolar fracture dislocation) Postreduction x-ray of the right ankle with near anatomic alignment Radiology: EMP read contemporaneously Procedures - Splint (location) R ankle Splint applied by: Physician, Tech Type of splint: Fiberglass, Long leg, Posterior, Stirrup Other: Patient tolerated well, No complications, Neurovascular intact - Reduction Body part reduced: Right, Ankle Fracture or dislocation: Fracture dislocation Reduction aftercare: Alignment improved, Splint applied - Procedural sedation Sedation prep: Informed consent, Time out completed, Last meal (12pm), PE performed, ASA 1 - healthy Sedation Medications: propofol (60 mg IV push then 40 mg IV push) Mallampati classification: I Patient status during sedation: Responds to tactile Sedation recovery: Recovered uneventfully, Back to baseline Time in sedation (Minutes): 12 Departure - Departure Disposition: 01 Home, Self Care Clinical Impression: Closed trimalleolar fracture Condition: Good Record reviewed to determine appropriate education?: Yes Instructions: ED Fx Ankle General Follow-Up: Patrick Gilliland MD [Provider Admit Priv/Credential] - Prescriptions: HYDROcod/ACETAM 5/325 [[place] 5/325] 1 - 2 tab PO Q6H PRN #15 tablet PRN Reason: Pain Comments: I sent the prescription for pain medication electronically to [facility] in [place]. I also wrote you a handwritten prescription for a knee scooter. Keep the leg elevated and do not try to walk or bear weight on the right leg. Do not remove the splint. If it becomes severely painful return for reevaluation. Otherwise call the orthopedics office on Tuesday for an appointment within a week and I suspect arrangements for surgery. I am prescribing a short course of narcotic pain medication for you. These are potentially dangerous and addictive medications that should be used carefully. These medications may constipate you. Take an nxge-xrw-mshijra stool softener (docusate) twice daily with plenty of water while taking these medications. If you go 24 hours without a bowel movement, take wvan-xdk-wixlwcw miralax, per package instructions. Do not drink or drive while taking these medications. If you received narcotic or sedating medications while in the emergency department, do not drive for 24 hours. Store this medication in a safe, secure place and out of reach of children. It is a violation of federal law to give or sell this medication to another person or to use in a manner other than prescribed. The ED will not refill narcotic prescriptions, including prescriptions lost or stolen. To dispose of unwanted medications: 1. [facility] at [address] in [place] has a medication drop box. They accept prescription medications (in pill form) Tuesday through Tuesday 9:00 a.m. to 5:00 p.m. 2. The [facility] accepts prescription medications (in pill form only) for disposal year round. Call for more information. 3. Contact the [facility] for the next [facility] sponsored prescription drug collection event. , [phone], or [phone]; Note that many narcotic pain relievers also contain Tylenol/acetaminophen. Please ensure that your total dose of acetaminophen from all sources does not exceed 3 g (3000 mg) per day.
[2022-01-16] MEDS ORDERED: PROPOFOL 200 MG/20 ML VIAL IVP STA (16:24)
--- NOTE | 2022-01-16 16:33 | XRAY Report ---
PROCEDURE: Ankle 3 View RT, x-ray INDICATIONS: Ground-level fall TECHNIQUE: 3 views of the ankle were acquired. COMPARISON: None FINDINGS: Bones: Oblique fracture through the distal fibula with lateral displacement of the distal fracture fr agment. Transverse fracture through the medial malleolus with lateral subluxation of the talus relati ve to the tibia. There is a complete posterior dislocation of the ankle mortise present as well as ve rtical fracture through the posterior malleolus through the Soft tissues: No tibiotalar joint effusion. Achilles tendon appears normal. IMPRESSION: 1. Trimalleolar fracture dislocation. There is complete ankle mortise disruption and posterior tibiot alar dislocation Reviewed by: Zhang Heath MD on 01/16/2022 3:31 PM MARCO A Approved by: Zhang Heath MD on 01/16/2022 3:31 PM MARCO A Station ID: [id number]
[2022-01-16] MEDS ORDERED: HYDROcod/ACET 5/325 Prepack 4 PO STA (17:17)
[2022-01-16 17:45] VITALS: BP 160/84
--- NOTE | 2022-01-16 18:02 | XRAY Report ---
PROCEDURE: Ankle 2 View RT INDICATIONS: post reduction TECHNIQUE: 2 views of the ankle were acquired. COMPARISON: 01/16/2022 FINDINGS: Bones: There is now near-anatomic alignment of the tibiotalar joint with fractures through the distal fibula, distal tibial medial and posterior malleolus. Soft tissues: Associated soft tissue swelling noted. Overlying fiberglass splint present. IMPRESSION: Trimalleolar fracture now in near anatomic alignment and overlying fiberglass splint Reviewed by: Zhang Heath MD on 01/16/2022 5:01 PM AKDT Approved by: Zhang Heath MD on 01/16/2022 5:01 PM AKDT Station ID: [id number]
== END 2022-01-16 17:44 | disposition home or self-care (01) ==
LOC: ED 15:11
DX: S82.851A Displaced trimalleolar fracture of right lower leg, initial encounter for closed fracture (principal); W01.0XXA Fall on same level from slipping, tripping and stumbling without subsequent striking against object, initial encounter; Y93.01 Activity, walking, marching and hiking; Y92.830 Public park as the place of occurrence of the external cause
CPT/HCPCS: 27818; 94770; 99152; 99282

== ENCOUNTER 2022-01-20 10:52 | Day surgery (SDC) | payer MEDICARE ==
[2022-01-20] MEDS ORDERED: CELECOXIB 100 MG CAPSULE PO ONE (11:07)
[2022-01-20] MEDS ORDERED: CEFAZOLIN SODIUM IN 0.9 % NACL 2 GM/50 ML BAG IV ONE (11:07)
[2022-01-20] MEDS ORDERED: ACETAMINOPHEN 500 MG TABLET PO ONE (11:07)
[2022-01-20] MEDS ORDERED: LACTATED RINGERS 1,000 ML IV ONE ×2 (11:13→15:33)
--- NOTE | 2022-01-20 11:29 | ANESTHESIA ---
Pre-Anesthesia VS, & Labs - Diagnosis right trimalleolar fractur - Procedure right ORIF ankle fracture Vital Signs: Temp Pulse Resp BP Pulse Ox 36.5 C 72 16 144/83 H 96 01/20/22 11:14 01/20/22 11:14 01/20/22 11:14 01/20/22 11:14 01/20/22 11:14 Height: 4 ft 11 in Weight (kg): 72.57 kg Body Mass Index: 32.3 BMI Classification: Obese - NPO >8 hours - Is Patient ?: No Home Medications and Allergies Home Medications: Ambulatory Orders Losartan [Cozaar] 50 mg PO DAILY 01/20/22 Venlafaxine HCl [Effexor Xr] 150 mg PO DAILY 08/29/14 Aspirin 325 mg PO DAILY PRN 04/04/19 Losartan [Cozaar] 50 mg PO DAILY 01/20/22 Allergies/Adverse Reactions: Allergies Allergy/AdvReac Type Severity Reaction Status Date / Time Sulfa (Sulfonamide Allergy Severe Unknown Verified 01/20/22 11:05 Antibiotics) Penicillins Allergy Unknown Verified 01/20/22 11:05 Anes History & Medical History - Anesthetic History Anesthesia Complications: reports: No previous complications - Medical History Cardiovascular: reports: Hypertension Pulmonary: reports: None Gastrointestinal: reports: None Urinary: reports: None Neuro: reports: None Musculoskeletal: reports: Osteoarthritis Endocrine/Autoimmune: reports: None Blood Disorders: reports: None Skin: reports: None Smoking Status: Never smoker History of Cancer?: No - Surgical History General: reports: Colonoscopy Eyes Ears Nose Throat (EENT): reports: Cataracts, Tonsil/Adenoidectomy Urologic: reports: Bladder surgery Gynecologic: reports: Hysterectomy, Breast reduction Dermatologic: reports: Skin grafts Exam General: Alert, Oriented x3 Dental: WNL Mouth Opening: Greater than 4 Fingerbreadths Neck Mobility: Normal Mallampati classification: II Thyromental Distance: greater than 6 cm Respiratory: Lungs clear Cardiovascular: Regular rate, Normal S1, Normal S2 Plan Anesthesia Type: General, Popliteal Block, Adductor Block Consent for Procedure(s) Verified and Reviewed: Yes Code Status: Attempt Resuscitation ASA classification: 2-Mild systemic disease Is this case an emergency?: No
[2022-01-20] MEDS ORDERED: fentaNYL 100 MCG/2 ML VIAL IVP PRN (11:31)
[2022-01-20] MEDS ORDERED: HYDROmorphone 0.5 MG/0.5 ML SYRINGE IVP PRN (11:31)
[2022-01-20] MEDS ORDERED: MORPHINE 2 MG/ML CARPUJECT IVP PRN (11:31)
[2022-01-20] MEDS ORDERED: ATROPINE ABBOJECT 1 MG/10 ML SYRINGE IVP PRN (11:31)
[2022-01-20] MEDS ORDERED: NALOXONE 0.4 MG/ML VIAL IVP PRN (11:31)
[2022-01-20] MEDS ORDERED: METOCLOPRAMIDE 10 MG/2 ML VIAL IVP PRN (11:31)
[2022-01-20] MEDS ORDERED: ONDANSETRON 4 MG/2 ML VIAL IVP PRN ×2 (11:31→12:08)
[2022-01-20] MEDS ORDERED: ePHEDrine 50 MG/ML VIAL IVP PRN (11:31)
[2022-01-20] MEDS ORDERED: LACTATED RINGERS 1,000 ML IV SCH (12:00)
[2022-01-20] MEDS ORDERED: MIDAZOLAM 2 MG/2 ML VIAL ONE (12:01)
[2022-01-20] MEDS ORDERED: ROPIVACAINE 0.5% PF 20 ML AMPULE ONE (12:02)
[2022-01-20] MEDS ORDERED: oxyCODONE 5 MG TABLET PO PRN (12:08)
[2022-01-20] MEDS ORDERED: KETOROLAC 30 MG/ML VIAL ONE (13:31)
[2022-01-20] MEDS ORDERED: ONDANSETRON 4 MG/2 ML VIAL ONE (13:31)
[2022-01-20] MEDS ORDERED: fentaNYL 100 MCG/2 ML VIAL ONE (14:52)
--- NOTE | 2022-01-20 15:31 | OPERATIVE REPORT ---
Operative Report - General Procedure Date: 01/20/22 Planned Procedure: Open reduction internal fixation trimalleolar fracture right ankle Pre-Op Diagnosis: Displaced trimalleolar fracture right ankle Procedure Performed: Open reduction internal fixation trimalleolar fracture right ankle including medial malleolus, lateral malleolus and posterior malleolus; Arthrex fibula lock fibular nail and 4.0 cancellous screws to posterior malleolus and medial malleolus Post Op Diagnosis: Same as preoperative diagnosis - Procedure Note Primary Surgeon: Patrick Gilliland MD Secondary Surgeon: JOLEEN Argueta; JOLEEN Jean Anesthesia Provider: Stacy Todd CRNA Anesthesia Technique: General LMA, Moderate sedation, Regional block Estimated Blood Loss (mL): 100 Indications: This is a relatively active 81-year-old woman with a history of fall after a trip with isolated injury to right ankle. The injury happened this past weekend. She was seen in the emergency room where she had a closed reduction of the dislocation of the right ankle and was seen in my office yesterday. She has isolated pain right ankle. Her pain is decreasing. Her exam showed swelling but not excessive; no fracture blisters and compartments were soft. Her skin was intact. She had limited and painful movement of ankle. Her x-ray showed a trimalleolar fracture. The fracture of the medial malleolus was at the joint line, transverse. The fracture of the lateral malleolus was at the level of the distal syndesmosis, Mortensen B. There was a posterior malleolus fragment that was approximately 20% of articular width. She has osteopenia. The ankle was dislocated, tibiotalar, in the emergency room and this was reduced. This was a fracture dislocation. The choices of treatment have been discussed with patient and niece. They elected to proceed with surgical stabilization to try to achieve the best potential outcome. An informed consent was obtained in our office yesterday. Findings: The fractures were confirmed as described with medial malleolus, lateral malleolus and posterior malleolus. It was elected because of her age, skin quality and osteoporosis to do a more percutaneous approach with fibular jake, percutaneous fixation of posterior malleolus and small incision for medial malleolus. Complications: None - Other Other Information/Narrative: The patient was brought to the operating room and placed in the supine position with the right leg on a foam bolster. A gel bump was placed beneath the right buttock for internal rotation of the right leg. A pneumatic tourniquet was applied to the proximal right thigh over cast padding and secured. The C-arm image intensifier which was used intermittently throughout the procedure was covered with a sterile drape. After satisfactory anesthesia had been achieved, a timeout procedure was performed by the entire operating room team and all were in agreement. A sterile bump was applied to help with inversion of right ankle. The bony landmarks were outlined with a sterile marking pen. The tip of the medial malleolus was identified and incision was made about 1.5 cm distally. This incision was about a centimeter. A guide was inserted at the tip of the malleolus and a guidepin was inserted across the lateral malleolus, fracture and into the proximal fibula. A good reduction was achieved. There is a large reamer was inserted and the fluids were buried. Additional reaming proximally was done with the 4.0 mm guide as a smaller reamer did not have good chatter proximally in the shaft. There is a 3.8 mm x 130 mm jake was assembled on the guide with the guide being oriented in a lateral direction. The jake was inserted by hand and gently impacted to the desired location, slightly counters unk at the tip of the lateral malleolus. The proximal tines of the jake were deployed. The locking screws distally were inserted to from lateral to medial and 1 from anterior to posterior. In addition, the syndesmosis tight rope was utilized to provide additional fixation. The posterior malleolus aligned well and a percutaneous screw was inserted from anterolateral to posterior using the C arm image intensifier. The screw for the posterior malleolus was a cannulated 4.0 mm partially-threaded lag screw it seemed to provide satisfactory fixation. The final incision was over the medial malleolus proximally 3 cm in length. Care was taken to protect the saphenous vein. A small arthrotomy was made on the medial ankle. The small transverse medial malleolar fracture fragment was reduced with a small bone clamp and stabilized with additional K wire so that a 4.0 mm cancellous lag screw could be inserted. This cancellous screw stabilized the fracture well even though the fragment was relatively small and osteopenic. The ankle mortise was stable on radiographs and clinically. A tourniquet was used for the medial malleolar incision and was approximately 15 minutes in length, 250 mmHg. The wounds were irrigated. The percutaneous incisions were closed with simple 3-0 nylon. The medial malleolar incision was closed in layers with 3-0 Monocryl and 4-0 subcuticular. Dermabond was applied Xeroform dry sterile dressings and a well-padded short leg fiberglass splint was applied with the ankle in neutral dorsiflexion. She received Ancef 2 g intravenously. She tolerated procedure well. Physician assistants were utilized to help with exposure, reduction, insertion of internal fixation, wound closure, splint application.
--- NOTE | 2022-01-20 15:40 | XRAY Report ---
PROCEDURE: OR C-Arm Procedure INDICATIONS: ORIF RIGHT ANKLE TECHNIQUE: Single fluoroscopic image obtained during ankle surgery COMPARISON: None. FINDINGS: 1 fluoroscopic image demonstrates trimalleolar ORIF and syndesmosis repair. IMPRESSION: Fluoroscopic imaging utilized during ankle ORIF. Reviewed by: Jose Daniel Cortez MD on 01/20/2022 3:39 PM PDT Approved by: Jose Daniel Cortez MD on 01/20/2022 3:39 PM PDT Station ID: [id number]
[2022-01-20] MEDS ORDERED: oxyCODONE 5 MG TABLET ONE (16:17)
[2022-01-20 16:18] VITALS: BP 124/74
== END 2022-01-20 10:53 | disposition home or self-care (01) ==
LOC: SDS 10:52
PROVIDERS: ATTEND Orthopaedic Surgery
DX: S82.851A Displaced trimalleolar fracture of right lower leg, initial encounter for closed fracture (principal); I10 Essential (primary) hypertension; E66.9 Obesity, unspecified; Z68.32 Body mass index [BMI] 32.0-32.9, adult
CPT/HCPCS: 27822; A9270; C1713; J0690; J7120

== ENCOUNTER 2022-03-04 08:00 | Outpatient (CLI) | payer MEDICARE, OTHER ==
--- NOTE | 2022-03-04 12:53 | XRAY Report ---
PROCEDURE: Ankle 3 View RT INDICATIONS: ANKLE FX TECHNIQUE: 3 views of the ankle were acquired. COMPARISON: Right ankle radiographs 01/16/2022. Intraoperative radiographs 01/20/2022. FINDINGS: Bones: Post-ORIF. Intramedullary jake at the distal fibula with screw fixation. There is improved ali gnment of the distal fibula shaft fracture. Screw at the medial malleolus and distal tibia. Band at t he distal tibia/fibula. Improved alignment of the ankle mortise. No hardware fracture. No suspicious bony lesions. Soft tissues: No tibiotalar joint effusion. Achilles tendon appears normal. IMPRESSION: Expected appearance of the right ankle ORIF. Reviewed by: Chang Parker MD on 03/04/2022 12:51 PM PDT Approved by: Chang Parker MD on 03/04/2022 12:51 PM PDT Station ID: [id number]
== END 2022-03-04 23:59 | disposition home or self-care (01) ==
LOC: DI.WOS 08:00
PROVIDERS: ATTEND Orthopaedic Surgery
DX: S82.851A Displaced trimalleolar fracture of right lower leg, initial encounter for closed fracture (principal)

== ENCOUNTER 2022-09-06 15:30 | Outpatient (CLI) | payer MEDICARE ==
--- NOTE | 2022-09-06 16:37 | XRAY Report ---
PROCEDURE: Ankle 3 View RT INDICATIONS: RIGHT ANKLE FRACTURE TECHNIQUE: 3 views of the ankle were acquired. COMPARISON: 03/04/2022 FINDINGS: Bones: Distal fibular jake, and medial malleolar cannulated screw, posterior malleolar screw and synde smotic tendon tunnel are all unchanged from the prior exam. Ankle mortise is maintained. There is tib iotalar joint space narrowing. Bridging callus and healing as increased from the prior Soft tissues: No tibiotalar joint effusion. Achilles tendon appears normal. IMPRESSION: 1. Healing instrumented trimalleolar fracture without evidence of hardware failure or loosening Reviewed by: Zhang Heath MD on 09/06/2022 3:35 PM AKST Approved by: Zhang Heath MD on 09/06/2022 3:35 PM AKST Station ID: [id number]
== END 2022-09-06 15:31 | disposition home or self-care (01) ==
LOC: DI.WOS 15:30
PROVIDERS: ATTEND Physician Assistant Surgical
DX: S82.851D Displaced trimalleolar fracture of right lower leg, subsequent encounter for closed fracture with routine healing (principal)

== ENCOUNTER 2022-09-07 12:31 | Outpatient (CLI) | payer MEDICARE ==
--- NOTE | 2022-09-07 18:07 | DEXA Report ---
PROCEDURE: Dexa Spine and/or Hip INDICATIONS: POST MENOPAUSAL TECHNIQUE: Dual energy x-ray absorptiometry (DXA) was performed on a [employer] Feint System. Regions measur ed are the AP Spine, femoral neck, and if needed forearm. COMPARISON: 02/15/2020 FINDINGS: Lumbar Spine: Bone Mineral Density 1.157 g/cm/cm,T score -0.2, normal. Since the previous exam there has been a significant interval increase in bone mineral density. It is unclear if this represents true interval improvement versus an increase in degenerative changes. Left Femoral Neck: Bone Mineral Density 0.841 g/cm/cm, T score -1.4, osteopenia. Previous T score -2.5. Left Hip: Bone Mineral Density 0.753 g/cm/cm,T score -2.0, osteopenia. No significant interval change in bone mineral density. (T score greater or equal to -1.0: NORMAL) (T score from -1.1 to -2.4: OSTEOPENIA) (T score less than or equal to -2.5 to: OSTEOPOROSIS) Impression: Osteopenia. Interval change as above. Patients with diagnosis of osteoporosis or osteopenia should have regular bone mineral density assess ment. For those eligible for Medicare, routine testing is allowed once every 2 years. Testing frequ ency can be increased for patients who have rapidly progressing disease or for those who are receivin g medical therapy to restore bone mass. Reviewed by: Mervin Mayer MD on 09/07/2022 6:06 PM PST Approved by: Mervin Mayer MD on 09/07/2022 6:06 PM PST Station ID: [id number]
== END 2022-09-07 12:32 | disposition home or self-care (01) ==
LOC: DI 12:31
PROVIDERS: ATTEND Registered Nurse
DX: Z78.0 Asymptomatic menopausal state (principal); M85.89 Other specified disorders of bone density and structure, multiple sites

== ENCOUNTER 2022-09-09 08:08 | Outpatient (CLI) | payer MEDICARE ==
[2022-09-09 08:37] LABS: BASOPHILS # (AUTO) 0.1 10^3/uL (0.0-0.1); BASOPHILS % (AUTO) 0.7 %; EOSINOPHILS # (AUTO) 0.3 10^3/uL (0.0-0.7); EOSINOPHILS % (AUTO) 3.6 %; HCT - HEMATOCRIT 41.2 % (37.0-47.0); LYMPHOCYTES # (AUTO) 1.6 10^3/uL (1.5-3.5); LYMPHOCYTES % (AUTO) 21.8 %; MEAN CORPUSCULAR HEMOGLOBIN 18.3 pg (27.0-31.0); MEAN CORPUSCULAR HGB CONC 29.1 g/dL (32.0-36.0); MEAN CORPUSCULAR VOLUME 62.8 fL (81.0-99.0); MONOCYTES # (AUTO) 0.7 10^3/uL (0.0-1.0); MONOCYTES % (AUTO) 9.2 %; NEUTROPHILS # (AUTO) 4.7 10^3/uL (1.5-6.6); NEUTROPHILS % (AUTO) 64.4 %; PLT - PLATELET COUNT 312 10^3/uL (130-450); RED BLOOD COUNT 6.56 10^6/uL (4.20-5.40); RED CELL DISTRIBUTION WIDTH 18.7 % (12.0-15.0); WHITE BLOOD COUNT 7.3 x10^3/uL (4.8-10.8)
[2022-09-09 09:01] LABS: ALBUMIN 4.1 g/dL (3.2-5.5); ALBUMIN/GLOBULIN RATIO 1.3 (1.0-2.2); ALKALINE PHOSPHATASE 175 IU/L (42-121); ALT ALANINE AMINOTRANSFERASE 20 IU/L (10-60); AST ASPARTATE AMINOTRANSFERASE 26 IU/L (10-42); BILIRUBIN,TOTAL 0.7 mg/dL (0.2-1.0); BUN - BLOOD UREA NITROGEN 14 mg/dL (6-20); CALCIUM 8.9 mg/dL (8.5-10.3); CARBON DIOXIDE - CO2 28 mmol/L (21-32); CHLORIDE 102 mmol/L (101-111); CHOL/HDL RATIO 3.1 (<4.4); CHOLESTEROL 188 mg/dL; CREATININE 0.7 mg/dL (0.4-1.0); GFR - MDRD 81 (>89); GLUCOSE 103 mg/dL (70-100); HDL CHOLESTEROL 60 mg/dL; LDL CHOLESTEROL,CALCULATED 115 mg/dL; LDL/HDL RATIO 1.9 (<4.4); POTASSIUM 4.2 mmol/L (3.5-5.0); SODIUM 137 mmol/L (135-145); TOTAL PROTEIN 7.2 g/dL (6.7-8.2); TRIGLYCERIDES 64 mg/dL; VLDL CHOLESTEROL 13 mg/dL
[2022-09-09 09:08] LABS: THYROID STIMULATING HORMONE 1.74 uIU/mL (0.34-5.60)
[2022-09-09 09:13] LABS: SLIDE REVIEW? Indicated
[2022-09-09 09:16] LABS: PLATELET ESTIMATE, MANUAL NORMAL (130-450,000) (NORMAL); PLATELET MORPHOLOGY NORMAL APPEARANCE (NORMAL)
== END 2022-09-09 08:09 | disposition home or self-care (01) ==
LOC: LAB 08:08
PROVIDERS: ATTEND Registered Nurse
DX: Z79.899 Other long term (current) drug therapy (principal); Z13.220 Encounter for screening for lipoid disorders; Z13.29 Encounter for screening for other suspected endocrine disorder
CPT/HCPCS: 36415; 80053; 80061; 83721; 84443; 85025

== ENCOUNTER 2022-09-30 15:10 | Outpatient (CLI) | payer MEDICARE ==
--- NOTE | 2022-09-30 14:48 | XRAY Report ---
PROCEDURE: Ankle 3 View RT INDICATIONS: RIGHT ANKLE ORIF TECHNIQUE: 3 views of the ankle were acquired. COMPARISON: X-ray would to 223, x-ray ankle 09/06/2022 FINDINGS: Bones: Distal fibular as well as medial malleolar fusion are present. Hardware is intact without evid ence of hardware fracture or periprosthetic lucency to suggest loosening. Ankle mortise is normally a ligned. No suspicious bony lesions. There is persistent appearance of bridging callus at the areas of fracture site of the distal fibula, distal tibia and posterior malleolus. Soft tissues: No tibiotalar joint effusion. Achilles tendon appears normal. IMPRESSION: Stable alignment and fixation with continued interval healing of previously identified f ibular, tibia and medial malleolar fractures. Reviewed by: Arabella Bernard MD on 09/30/2022 2:46 PM PST Approved by: Arabella Bernard MD on 09/30/2022 2:46 PM PST Station ID: [id number]
--- NOTE | 2022-09-30 14:49 | XRAY Report ---
PROCEDURE: Foot 3 View RT INDICATIONS: RIGHT FOOT PAIN TECHNIQUE: 3 views of the foot were acquired. COMPARISON: X-ray ankle 09/30/2022 a FINDINGS: Bones: No fractures or dislocations. No suspicious bony lesions. Partially visualized fusion of th e distal fibula as well as medial malleolus are identified. Prominent hallux valgus deformity is pres ent. Diffuse moderate IP degenerative changes. Mild osteopenia. Soft tissues: No tibiotalar joint effusion. Achilles tendon appears normal. IMPRESSION: Degenerative changes and osteopenia as well as hallux valgus deformity. Reviewed by: Arabella Bernard MD on 09/30/2022 2:47 PM PST Approved by: Arabella Bernard MD on 09/30/2022 2:47 PM PST Station ID: [id number]
== END 2022-09-30 15:11 | disposition home or self-care (01) ==
LOC: DI.WOS 15:10
PROVIDERS: ATTEND Orthopaedic Surgery
DX: S82.851D Displaced trimalleolar fracture of right lower leg, subsequent encounter for closed fracture with routine healing (principal); M19.071 Primary osteoarthritis, right ankle and foot; M85.871 Other specified disorders of bone density and structure, right ankle and foot; M20.11 Hallux valgus (acquired), right foot

== ENCOUNTER 2023-09-02 12:55 | Outpatient (CLI) | payer MEDICARE ==
--- NOTE | 2023-09-05 11:46 | Mammography Report ---
BILATERAL DIGITAL SCREENING MAMMOGRAM 3D/2D: 09/02/2023 CLINICAL: Routine screening. Comparison is made to exams dated: 07/29/2022 mammogram, 08/12/2021 mammogram, 07/01/2020 mammogram, mammogram, 07/31/2018 mammogram, and 06/15/2017 mammogram - [facility]. Both breasts are almost entirely fatty (category a/<25% glandular tissue). No significant masses, calcifications, or other findings are seen in either breast. There has been no significant interval change. IMPRESSION: NEGATIVE There is no mammographic evidence of malignancy. A 1 year screening mammogram is recommended. Based on the Tyrer Cuzick model (a risk assessment model) the patients lifetime risk is 4.9% and her 10 year risk is 0.0%. According to the ACR, ACS, and NCCN guidelines, an annual breast MRI exam aleisha g with mammogram is recommended if the patients lifetime risk is 20% or greater. This exam was interpreted at Station ID: [id number]. NOTE: For mammograms, a report in lay terms will be sent to the patient. Approximately 15% of breast malignancies will not be visualized mammographically. In the management of a palpable breast mass, a negative mammogram must not discourage biopsy of a clinically suspicious lesion. Electronically Signed By: Riky barber/samara:09/02/2023 13:27:12 letter sent: No_Letter ACR BI-RADS Category 1: Negative 3341F PARENCHYMAL PATTERN: (F) - The breast(s) demonstrate(s) diffuse fatty replacement. BI-RADS CATEGORY: (1) - 1 Mammogram [id number] 1 year screening LATERALITY: (B)
== END 2023-09-02 12:56 | disposition home or self-care (01) ==
LOC: DI 12:55
PROVIDERS: ATTEND Registered Nurse
DX: Z12.31 Encounter for screening mammogram for malignant neoplasm of breast (principal)

== ENCOUNTER 2023-11-02 07:49 | Outpatient (CLI) | payer MEDICARE ==
[2023-11-02 08:21] LABS: ALBUMIN 4.2 g/dL (3.2-5.5); ALBUMIN/GLOBULIN RATIO 1.4 (1.0-2.2); ALKALINE PHOSPHATASE 156 IU/L (42-121); ALT ALANINE AMINOTRANSFERASE 12 IU/L (10-60); AST ASPARTATE AMINOTRANSFERASE 19 IU/L (10-42); BILIRUBIN,TOTAL 0.6 mg/dL (0.2-1.0); BUN - BLOOD UREA NITROGEN 12 mg/dL (6-20); CALCIUM 9.7 mg/dL (8.5-10.3); CARBON DIOXIDE - CO2 31 mmol/L (21-32); CHLORIDE 107 mmol/L (101-111); CHOL/HDL RATIO 3.2 (<4.4); CHOLESTEROL 165 mg/dL; CREATININE 0.7 mg/dL (0.6-1.3); GFR - MDRD 81 (>89); GLUCOSE 99 mg/dL (74-104); HDL CHOLESTEROL 51 mg/dL; LDL CHOLESTEROL,CALCULATED 86 mg/dL; LDL/HDL RATIO 1.7 (<4.4); SODIUM 143 mmol/L (135-145); TOTAL PROTEIN 7.2 g/dL (6.4-8.9); TRIGLYCERIDES 138 mg/dL (48-352); VLDL CHOLESTEROL 28 mg/dL
[2023-11-02 08:38] LABS: THYROID STIMULATING HORMONE 1.95 uIU/mL (0.34-5.60)
[2023-11-02 08:45] LABS: BASOPHILS # (AUTO) 0.1 10^3/uL (0.0-0.1); BASOPHILS % (AUTO) 0.7 %; EOSINOPHILS # (AUTO) 0.2 10^3/uL (0.0-0.7); EOSINOPHILS % (AUTO) 3.2 %; HCT - HEMATOCRIT 38.7 % (37.0-47.0); HGB - HEMOGLOBIN 10.9 g/dL (12.0-16.0); LYMPHOCYTES # (AUTO) 1.4 10^3/uL (1.5-3.5); LYMPHOCYTES % (AUTO) 20.7 %; MEAN CORPUSCULAR HEMOGLOBIN 16.7 pg (27.0-31.0); MEAN CORPUSCULAR HGB CONC 28.2 g/dL (32.0-36.0); MEAN CORPUSCULAR VOLUME 59.3 fL (81.0-99.0); MONOCYTES # (AUTO) 0.6 10^3/uL (0.0-1.0); MONOCYTES % (AUTO) 9.1 %; NEUTROPHILS # (AUTO) 4.6 10^3/uL (1.5-6.6); NEUTROPHILS % (AUTO) 66.2 %; PLT - PLATELET COUNT 334 10^3/uL (130-450); RED BLOOD COUNT 6.53 10^6/uL (4.20-5.40); RED CELL DISTRIBUTION WIDTH 24.2 % (12.0-15.0); WHITE BLOOD COUNT 6.9 x10^3/uL (4.8-10.8)
[2023-11-02 08:47] LABS: SLIDE REVIEW? Indicated
[2023-11-02 08:48] LABS: RBC MORPHOLOGY (MULTIPLE) 4+ ANISOCYTOSIS (NORMAL)
== END 2023-11-02 07:50 | disposition home or self-care (01) ==
LOC: LAB 07:49
PROVIDERS: ATTEND Registered Nurse
DX: D56.9 Thalassemia, unspecified (principal); Z79.899 Other long term (current) drug therapy; Z13.220 Encounter for screening for lipoid disorders; Z13.29 Encounter for screening for other suspected endocrine disorder; F32.A Depression, unspecified
CPT/HCPCS: 36415; 80053; 80061; 82306; 83721; 84443; 85025

== ENCOUNTER 2023-11-07 07:54 | Outpatient (CLI) | payer MEDICARE | END 2023-11-07 07:55 | disposition home or self-care (01) | LOC: LAB 07:54 | PROVIDERS: ATTEND Registered Nurse | DX: R53.1 Weakness (principal) | CPT/HCPCS: 36415; 82550 ==